=== PATIENT | male | born 2000 | race Caucasian/White ===

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

== ENCOUNTER 2023-09-19 18:51 | Observation (INO) | payer OTHER ==
[2023-09-19] MEDS ORDERED: HALOPERIDOL LACTATE 5 MG/ML ONE (21:22)
[2023-09-19] MEDS: HALOPERIDOL LACTATE 5 MG/ML IM ONE (21:32)
[2023-09-19 21:49] LABS: BASO % 0.3 % (0-2.0); EOS % 0.4 % (0-4.5); HEMOGLOBIN 14.6 GM/dL (11.7-16.9); LYMPH % 28.8 % (8-40); MCH 28.8 pg (25.7-33.7); MCHC 33.1 g/dl (32.0-35.9); MEAN CELL VOLUME 87.3 fl (80-96); MEAN PLT VOLUME 8.1 fl (7.5-11.1); MONO % 7.6 % (3.8-10.2); NEUT % 62.9 % (42.8-82.8); PLATELET COUNT 226 10^3/uL (134-434); RBC 5.05 M/mm3 (4.00-5.60); WHITE BLOOD COUNT 8.3 K/mm3 (4.0-10.0)
[2023-09-19 22:50] LABS: POTASSIUM 3.5 mmol/L (3.5-5.1)
[2023-09-19 22:52] LABS: CALCIUM 9.5 mg/dL (8.5-10.1)
[2023-09-19 22:53] LABS: ALBUMIN 4.6 g/dl (3.4-5.0); BLOOD UREA NITROGEN 12.7 mg/dL (7-18)
[2023-09-19 22:56] LABS: CREATININE 0.9 mg/dL (0.55-1.3)
[2023-09-19 22:57] LABS: TOT PROT 8.5 g/dl (6.4-8.2)
[2023-09-19 22:58] LABS: BILIRUBIN,TOTAL 1.1 mg/dL (0.2-1)
[2023-09-20] MEDS: SODIUM CHLORIDE 1,000 ML IV STA
[2023-09-20 00:57] LABS: PH,URINE 5.5 (5.0-8.0); URINE APPEARANCE CLEAR; URINE BILIRUBIN NEGATIVE (NEGATIVE); URINE COLOR YELLOW; URINE GLUCOSE (UA) NEGATIVE (NEGATIVE); URINE KETONE 3+ (NEGATIVE); URINE LEUK ESTERASE NEGATIVE (NEGATIVE); URINE NITRITE NEGATIVE (NEGATIVE); URINE PROTEIN TRACE (NEGATIVE)
[2023-09-20 07:27] LABS: BASO % 0.4 % (0-2.0); EOS % 2.1 % (0-4.5); HEMOGLOBIN 14.5 GM/dL (11.7-16.9); MCH 29.6 pg (25.7-33.7); MCHC 33.6 g/dl (32.0-35.9); MEAN CELL VOLUME 88.1 fl (80-96); MEAN PLT VOLUME 8.2 fl (7.5-11.1); MONO % 9.5 % (3.8-10.2); PLATELET COUNT 189 10^3/uL (134-434); RBC 4.88 M/mm3 (4.00-5.60); WHITE BLOOD COUNT 6.4 K/mm3 (4.0-10.0)
[2023-09-20 07:51] LABS: POTASSIUM 4.6 mmol/L (3.5-5.1)
[2023-09-20 07:54] LABS: CALCIUM 8.6 mg/dL (8.5-10.1)
[2023-09-20 07:55] LABS: ALBUMIN 3.8 g/dl (3.4-5.0); BLOOD UREA NITROGEN 12.4 mg/dL (7-18); MAGNESIUM 2.3 mg/dL (1.8-2.4)
[2023-09-20 07:58] LABS: PHOSPHOROUS 4.3 mg/dL (2.5-4.9)
[2023-09-20 07:59] LABS: BILIRUBIN,TOTAL 1.2 mg/dL (0.2-1); TOT PROT 7.2 g/dl (6.4-8.2)
[2023-09-20] MEDS ORDERED: LEVOTHYROXINE NA 75 MCG TABLET (FP) ONE (09:57)
[2023-09-20] MEDS: LEVOTHYROXINE NA 75 MCG TABLET (FP) PO SCH (10:00)
[2023-09-20] MEDS: NICOTINE 21 MG/24 HOURS TOPICAL PATCH TD SCH (10:08)
[2023-09-20 18:43] LABS: HIV INTERPRETATION NEGATIVE (NEGATIVE)
[2023-09-21 10:51] LABS: POTASSIUM 3.7 mmol/L (3.5-5.1)
[2023-09-21 10:54] LABS: BLOOD UREA NITROGEN 11.7 mg/dL (7-18)
[2023-09-21 10:57] LABS: CREATININE 1.1 mg/dL (0.55-1.3)
[2023-09-21 10:58] LABS: TOT PROT 9.1 g/dl (6.4-8.2)
[2023-09-21 11:00] LABS: ALBUMIN 4.7 g/dl (3.4-5.0); CALCIUM 9.9 mg/dL (8.5-10.1)
[2023-09-21 16:11] VITALS: BMI 18.1
[2023-09-21] MEDS: HALOPERIDOL LACTATE 5 MG/ML IM PRN (23:25)
[2023-09-22 13:59] VITALS: BP 124/92; PULSE 100; RESP 20; TEMP 97.9
== END 2023-09-22 18:34 | disposition home or self-care (01) ==
LOC: JER 18:51 → JERBED 21:36 → J7W 09-20 17:49
PROVIDERS: ADMIT Internal Medicine; ATTEND Internal Medicine
PROC: 3E023GC Introduction of Other Therapeutic Substance into Muscle, Percutaneous Approach (ICD-10-PCS; principal; 2023-09-19)
PROC: 3E033GC Introduction of Other Therapeutic Substance into Peripheral Vein, Percutaneous Approach (ICD-10-PCS; 2023-09-19)
PROC: 3E0337Z Introduction of Electrolytic and Water Balance Substance into Peripheral Vein, Percutaneous Approach (ICD-10-PCS; 2023-09-19)
DX: R41.82 Altered mental status, unspecified (principal); R04.0 Epistaxis; E03.9 Hypothyroidism, unspecified; F17.200 Nicotine dependence, unspecified, uncomplicated
CPT/HCPCS: 0241U-QW; 36415; 70450-TC; 70551-TC; 71045-TC-FY; 80053; 80307; 81003; 82550; 82553; 82607; 83735; 84100; 84439; 84443; 84481; 85025; 86780; 87086; 87389; 93005; 93010; 96372; 96374; 99285-25; G0378

== ENCOUNTER 2023-09-23 00:54 | Emergency (ER) | payer OTHER ==
[2023-09-23 01:15] VITALS: BMI 18.1
[2023-09-23] MEDS: SODIUM CHLORIDE 0.9% 500 ML INFUS.BAG IV ONE (02:36)
[2023-09-23 02:46] LABS: BASO % 0.1 % (0-2.0); EOS % 0.5 % (0-4.5); HEMATOCRIT 44.4 % (35.4-49); HEMOGLOBIN 15.4 GM/dL (11.7-16.9); LYMPH % 15.3 % (8-40); MCH 29.8 pg (25.7-33.7); MCHC 34.8 g/dl (32.0-35.9); MEAN CELL VOLUME 85.5 fl (80-96); MONO % 5.4 % (3.8-10.2); NEUT % 78.7 % (42.8-82.8); PLATELET COUNT 212 10^3/uL (134-434); RBC 5.19 M/mm3 (4.00-5.60); WHITE BLOOD COUNT 12.7 K/mm3 (4.0-10.0)
[2023-09-23 02:59] LABS: CHLORIDE 108 mmol/L (98-107); POTASSIUM 3.8 mmol/L (3.5-5.1); SODIUM 139 mmol/L (136-145)
[2023-09-23 03:01] LABS: CALCIUM 9.4 mg/dL (8.5-10.1)
[2023-09-23 03:02] LABS: ALBUMIN 4.4 g/dl (3.4-5.0); ANION GAP 7 mmol/L (4-13); BLOOD UREA NITROGEN 17.6 mg/dL (7-18); CO2 24 mmol/L (21-32); GLUCOSE,RANDOM 120 mg/dL (74-106)
[2023-09-23 03:05] LABS: SGOT/AST 29 U/L (15-37); SGPT/ALT 46 U/L (13-61)
[2023-09-23 03:06] LABS: BILIRUBIN,TOTAL 0.7 mg/dL (0.2-1)
[2023-09-23 03:07] LABS: TOT PROT 8.5 g/dl (6.4-8.2)
[2023-09-23 03:08] LABS: ALK PHOS 75 U/L (45-117)
[2023-09-23 03:47] LABS: COCAINE, UR NEGATIVE (NEGATIVE); URINE AMPHETAMINES NEGATIVE (NEGATIVE)
[2023-09-23 03:48] LABS: METHADONE, UR NEGATIVE (NEGATIVE); OPIATES, URI NEGATIVE (NEGATIVE); PHENCYCLIDINE,URINE NEGATIVE (NEGATIVE); URINE BARBITURATES NEGATIVE (NEGATIVE); URINE BENZODIAZEPINES NEGATIVE (NEGATIVE)
[2023-09-23 06:00] VITALS: RESP 18
[2023-09-23 11:33] VITALS: BP 115/67; PULSE 85; TEMP 99.1
== END 2023-09-23 12:59 | disposition home or self-care (01) ==
LOC: JER 00:54
DX: R45.851 Suicidal ideations (principal); R00.0 Tachycardia, unspecified
CPT/HCPCS: 36415; 71045-TC-FY; 80053; 80307; 84439; 84443; 84484; 85025; 86850; 86900; 86901; 93005; 93010; 99285-25